=== PATIENT | female | born 1970 | race Caucasian/White ===

== ENCOUNTER 2017-08-08 09:00 | Outpatient (RCR) | payer OTHER, MEDICARE | END 2017-08-09 | LOC: PT 09:00 | PROVIDERS: ATTEND Specialist | DX: M25.562 Pain in left knee (principal); M25.561 Pain in right knee; M25.662 Stiffness of left knee, not elsewhere classified; M25.661 Stiffness of right knee, not elsewhere classified; R26.2 Difficulty in walking, not elsewhere classified; M62.81 Muscle weakness (generalized); R29.6 Repeated falls | CPT/HCPCS: 97110 ×9; 97139; 97162; G8981 ×2; G8982 ×2 ==

== ENCOUNTER 2017-09-06 07:53 | Outpatient (RCR) | payer OTHER, MEDICARE | END 2017-09-08 | LOC: PT 07:53 | PROVIDERS: ATTEND Specialist | DX: M25.562 Pain in left knee (principal); M25.561 Pain in right knee; M25.662 Stiffness of left knee, not elsewhere classified; M25.661 Stiffness of right knee, not elsewhere classified; R26.2 Difficulty in walking, not elsewhere classified; M62.81 Muscle weakness (generalized); R29.2 Abnormal reflex | CPT/HCPCS: 97110 ×7; 97139; G8982; G8983 ==